=== PATIENT | male | born 1950 | race Caucasian/White ===

== ENCOUNTER 2019-12-25 06:28 | Outpatient (RCR) | payer MEDICARE, MEDICAID ==
[~2019-12-25] VITALS: Ht 165 cm; Wt 100.0 kg
[2019-12-25] MEDS ORDERED: MULT-1136 PO (14:01)
[2019-12-25] MEDS ORDERED: MONT10TA26 PO (14:01)
[2019-12-25] MEDS ORDERED: BUME1TAB8 PO (14:01)
[2019-12-25] MEDS ORDERED: MELO15TA39 PO (14:01)
[2019-12-25] MEDS ORDERED: FLUT1BLS3 IH (14:01)
[2019-12-25] MEDS ORDERED: TMSL.4C PO (14:01)
[2019-12-25] MEDS ORDERED: CALC-654 PO (14:01)
[2019-12-25] MEDS ORDERED: CETI10TA17 PO (14:01)
[2019-12-25] MEDS ORDERED: SPIR25TA5 PO (14:01)
[2019-12-25] MEDS ORDERED: LOSA50TA63 PO (14:01)
[2019-12-25] MEDS ORDERED: POTA-51 PO (14:01)
[2019-12-25] MEDS ORDERED: RT-ALBUINH IH (14:01)
== END 2019-12-25 14:37 | disposition home or self-care (01) ==
LOC: PREOP 06:28
PROVIDERS: ATTEND Otolaryngology Otolaryngology/Facial Plastic Surgery
DX: Z01.818 Encounter for other preprocedural examination (principal)

== ENCOUNTER 2020-01-15 05:40 | Outpatient (RCR) | payer MEDICARE, MEDICAID ==
[~2020-01-15] VITALS: Ht 165 cm; Wt 102.2 kg
[~2020-01-15 05:40] MED LIST: BUME1TAB8 PO; CALC-654 PO; CETI10TA17 PO; FLUT1BLS3 IH; LOSA50TA63 PO; MELO15TA39 PO; MONT10TA97 PO; MULT-1136 PO; POTA-51 PO; RT-ALBUINH IH; SPIR25TA5 PO; TMSL.4C PO
== END 2020-01-15 16:13 | disposition home or self-care (01) ==
LOC: PREOP 05:40
PROVIDERS: ATTEND Otolaryngology Otolaryngology/Facial Plastic Surgery
DX: Z01.812 Encounter for preprocedural laboratory examination (principal); J32.8 Other chronic sinusitis; J34.3 Hypertrophy of nasal turbinates

== ENCOUNTER 2020-01-23 08:09 | Day surgery (SDC) | payer MEDICARE, MEDICAID ==
[~2020-01-23] VITALS: Ht 165 cm; Wt 102.2 kg
[2020-01-23 08:45] VITALS: BP 129/85
--- NOTE | 2020-01-23 09:15 | NUR ---
PATIENT'S SURGERY CASE CANCELLED DUE TO EATING A FULL BREAKFAST PER ANESTHESIA. CALLED DR. DOMINGO'S OFFICE TO NOTIFY THEM OF CANCELLATION AND THE NEED FOR RESCHEDULING, OFFICE STATED THEY WILL BE IN WITH THE PATIENT. PATIENT'S IV DC'D AT THIS TIME, LEFT SDC VIA WHEELCHAIR ACCOMPANIED BY CAREGIVER AND THIS RN.
[2020-01-23] MEDS ORDERED: METF-397 PO (09:26)
[2020-01-23] MEDS ORDERED: HYDROCORTISONE 100 MG/2 ML (Solu-CORTEF) VIAL IV ONE (09:30)
[2020-01-23] MEDS ORDERED: LEVOFLOXACIN 500 MG/100 ML IV 100 ML IV ONE (09:30)
[2020-01-23] MEDS ORDERED: LACTATED RINGERS 1,000 ML IV PRN (09:30)
== END 2020-01-23 09:15 | disposition home or self-care (01) ==
LOC: SDC 08:09
PROVIDERS: ATTEND Otolaryngology Otolaryngology/Facial Plastic Surgery
DX: J32.9 Chronic sinusitis, unspecified (principal); Z53.09 Procedure and treatment not carried out because of other contraindication; J34.3 Hypertrophy of nasal turbinates; Z88.0 Allergy status to penicillin
CPT/HCPCS: 82962; 87081

== ENCOUNTER 2020-02-13 06:47 | Day surgery (SDC) | payer MEDICARE, MEDICAID ==
[2020-02-13] VITALS (10 sets, daily range): BP systolic 103–152; BP diastolic 57–95
[~2020-02-13] VITALS: Ht 165 cm; Wt 102.2 kg
[~2020-02-13 06:47] MED LIST changes: +METF-397 PO
[2020-02-13] MEDS ORDERED: COCAINE HCL 4% 2 ML SYR ONE (07:16)
[2020-02-13] MEDS ORDERED: BSS 15 ML ONE (07:16)
[2020-02-13] MEDS ORDERED: PHENYLEPHRINE 0.5% NASAL SPR (NEO-SYNEPHRINE) REG ONE (07:16)
[2020-02-13] MEDS ORDERED: LIDOCAINE/EPI 1%-1:100,000 (XYLOCAINE) 50 ML ONE (07:16)
[2020-02-13] MEDS ORDERED: LEVOFLOXACIN 500 MG/100 ML IV 100 ML ONE (07:29)
[2020-02-13] MEDS ORDERED: LEVOFLOXACIN 500 MG/100 ML IV 100 ML IV ONE (07:30)
[2020-02-13] MEDS ORDERED: HYDROCORTISONE 100 MG/2 ML (Solu-CORTEF) VIAL IV ONE (07:30)
[2020-02-13] MEDS ORDERED: LACTATED RINGERS 1,000 ML IV PRN (07:30)
--- NOTE | 2020-02-13 08:20 | Progress Note-Pre Operative ---
Pre-Operative Progress Note H&P Reviewed The H&P was reviewed, patient examined and no changes noted. Date Seen by Provider: Feb 13, 2020 Time Seen by Provider: 08:25 Date H&P Reviewed: Feb 13, 2020 Time H&P Reviewed: 08:25 Pre-Operative Diagnosis: Bilat Chronic Sinusitis, Deviated Nasal Septum, Bilat HYper of Inf Turbs JAMMIE DOMINGO MD Feb 13, 2020 08:20
[2020-02-13] MEDS ORDERED: fentaNYL INJECTION 100 MCG/2 ML AMP ONE (08:21)
[2020-02-13] MEDS ORDERED: MIDAZOLAM 2 MG/2 ML (VERSED) VIAL ONE (08:35)
[2020-02-13] MEDS ORDERED: LIDOCAINE PF 2% 5 ML (XYLOCAINE) VIAL ONE (08:48)
[2020-02-13] MEDS ORDERED: SEVOFLURANE (ULTANE) 15 ML INHAL SOLN ONE ×3 (08:48→10:04)
[2020-02-13] MEDS ORDERED: ROCURONIUM 10 MG/ML 5 ML SYRINGE IV ONE (08:48)
[2020-02-13] MEDS ORDERED: proPOfol 200 MG/20 ML (DIPRIVAN) VIAL IV ONE (08:48)
[2020-02-13] MEDS ORDERED: ONDANSETRON 4 MG/2 ML (SDV) Z0FRAN ONE (08:48)
[2020-02-13] MEDS ORDERED: PHENYLEPHRINE 100 MCG/ML 10 ML (ANESTHESIA) SYR ONE (09:54)
[2020-02-13] MEDS ORDERED: ESMOLOL 100 MG/10 ML (BREVIBLOC) VIAL ONE (09:54)
--- NOTE | 2020-02-13 10:03 | Progress Note-Post Operative ---
Post-Operative Progess Note Surgeon (s)/Pathology Laboratory Aide (s) Surgeon JAMMIE DOMINGO MD Pathology Laboratory Aide n/a Pre-Operative Diagnosis Bilat Chronic Sinusitis, Deviated Nasal Septum, Bilat HYper of Inf Turbs Post-Operative Diagnosis same Post-Op Procedure Note Date of Procedure: Feb 13, 2020 Name of Procedure Performed: Bilat ESS, Septoplasty, Bilat Red of Inf Turbs Description & Findings Description and Findings: n/a Anesthesia Type get Estimated Blood Loss minimal Packing none. Specimen(s) collected/removed bilat chronic sinusitis, nasal septum JAMMIE DOMINGO MD Feb 13, 2020 10:03
--- NOTE | 2020-02-13 10:12 | Anesthesia-General Post-Op ---
General Patient Condition Mental Status/LOC: Same as Preop Cardiovascular: Satisfactory Nausea/Vomiting: Absent Respiratory: Satisfactory Pain: Controlled Complications: Absent Post Op Complications Complications None Follow Up Care/Instructions Patient Instructions None needed. Anesthesia/Patient Condition Patient Condition Patient is doing well, no complaints, stable vital signs, no apparent adverse anesthesia problems. No complications reported per nursing. ELIZA BAIRD CRNA Feb 13, 2020 10:12
[2020-02-13] MEDS ORDERED: ONDANSETRON 4 MG/2 ML (SDV) Z0FRAN IVP PRN (10:15)
[2020-02-13] MEDS ORDERED: PROMETHAZINE INJ 25 MG/ML (PHENERGAN) AMP IVP PRN (10:15)
[2020-02-13] MEDS ORDERED: D5 1/2 NS W/KCL 20 MEQ/L 1,000 ML IV SCH (10:15)
[2020-02-13] MEDS ORDERED: MEPERIDINE (DEMEROL) INJ 50 MG/ML IVP ONE (10:15)
[2020-02-13] MEDS ORDERED: morphine INJ 10 MG/ML 1ML (SYR OR VIAL) IVP ONE (10:15)
[2020-02-13] MEDS ORDERED: ACETAMINOPHEN 325 MG TABLET PO PRN (10:15)
[2020-02-13] MEDS ORDERED: HYDROcodone/APAP 5 MG/325 MG (LORTAB) TAB PO PRN (10:15)
[2020-02-13] MEDS ORDERED: ACHD5005 PO (12:07)
[2020-02-13] MEDS ORDERED: LEVO500T80 PO (12:07)
== END 2020-02-13 12:35 | disposition home or self-care (01) ==
LOC: SDC 06:47
PROVIDERS: ATTEND Otolaryngology Otolaryngology/Facial Plastic Surgery
DX: J32.9 Chronic sinusitis, unspecified (principal); J34.2 Deviated nasal septum; J34.3 Hypertrophy of nasal turbinates; J34.89 Other specified disorders of nose and nasal sinuses; R09.81 Nasal congestion; I10 Essential (primary) hypertension; J44.9 Chronic obstructive pulmonary disease, unspecified; E11.9 Type 2 diabetes mellitus without complications; M19.90 Unspecified osteoarthritis, unspecified site; E66.9 Obesity, unspecified; Z68.37 Body mass index [BMI] 37.0-37.9, adult; Z79.899 Other long term (current) drug therapy; Z88.0 Allergy status to penicillin; Z87.442 Personal history of urinary calculi
CPT/HCPCS: 82962; 87081; 88305